=== PATIENT | female | born 1995 | race Caucasian/White ===

== ENCOUNTER 2019-01-17 12:33 | Emergency (ER) | payer BC ==
--- NOTE | 2019-01-17 13:00 | ER ---
Nurse's Notes [facility] Name: Shereen Johnson Age: 23 yrs Sex: Female : 1995 Arrival Date: 01/17/2019 Time: 12:37 Bed 27 Private MD: Diagnosis: Zoster [herpes zoster] Presentation: 01/17 12:52 Presenting complaint: Patient states: Rash to left arm pit, left breast and left side aj1 of back, reports that rash is painful, and itches a little. Transition of care: patient was not received from another setting of care. Onset of symptoms was 2018. Risk Assessment: Do you want to hurt yourself or someone else? Patient reports no desire to harm self or others. Initial Sepsis Screen: Does the patient meet any 2 criteria? No. Patient's initial sepsis screen is negative. Does the patient have a suspected source of infection? No. Patient's initial sepsis screen is negative. Care prior to arrival: None. 12:52 Method Of Arrival: Ambulatory aj1 12:52 Acuity: ANDREW 4 aj1 Triage Assessment: 12:53 General: Appears in no apparent distress. comfortable, Behavior is calm, cooperative, aj1 appropriate for age. Pain: Pain currently is 6 out of 10 on a pain scale. 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 - Social history:: Smoking status: Patient/guardian denies using tobacco. - Ebola Screening: : Patient denies travel to an Ebola-affected area in the 21 days before illness onset. Screenin:01 Abuse screen: Denies threats or abuse. Denies injuries from another. Nutritional aj1 screening: No deficits noted. Tuberculosis screening: No symptoms or risk factors identified. Fall Risk None identified. Assessment: 13:01 General: Appears in no apparent distress. Behavior is calm, cooperative, appropriate aj1 for age. Pain: Complains of pain in right scapular area, anterior aspect of left upper chest, left breast and left axilla Pain currently is 6 out of 10 on a pain scale. Quality of pain is described as burning. Neuro: Level of Consciousness is awake, alert, obeys commands, Oriented to person, place, time, situation. Cardiovascular: Patient's skin is warm and dry. Respiratory: Airway is patent Respiratory effort is even, unlabored, Respiratory pattern is regular, symmetrical. GI: No signs and/or symptoms were reported involving the gastrointestinal system. : No signs and/or symptoms were reported regarding the genitourinary system. EENT: No signs and/or symptoms were reported regarding the EENT system. Derm: Skin is pink, warm \T\ dry. normal, Rash noted that is red, raised, vesicular, on left scapular area and left axilla and left breast and anterior aspect of left upper chest. Musculoskeletal: No signs and/or symptoms reported regarding the musculoskeletal system. Circulation, motion, and sensation intact. Vital Signs: 12:53 BP 99 / 60; Pulse 89; Resp 16; Temp 99.0; Pulse Ox 98% ; Weight 58.97 kg (R); Height 5 aj1 ft. 2 in. (157.48 cm) (R); Pain 6/10; 12:53 Body Mass Index 23.78 (58.97 kg, 157.48 cm) aj1 ED Course: 12:37 Patient arrived in ED. mr 12:45 Lance Vaughn PA is PHCP. [facility] 12:45 Ricardo Solo MD is Attending Physician. [facility] 12:51 Darleen Lopez RN is Primary Nurse. aj1 12:52 Triage completed. aj1 12:53 Arm band placed on. aj1 13:14 No provider procedures requiring assistance completed. Patient did not have IV access aj1 during this emergency room visit. 13:15 Patient has correct armband on for positive identification. aj1 Administered Medications: No medications were administered Outcome: 12:59 Discharge ordered by . [facility] 13:14 Discharged to home ambulatory. aj1 13:14 Condition: good 13:14 Discharge instructions given to patient, Instructed on discharge instructions, follow up and referral plans. no drinking with medication, no driving heavy equipment, medication usage, Demonstrated understanding of instructions, follow-up care, medications, Prescriptions given X 2. 13:15 Patient left the ED. aj1 Signatures: Darleen Lopez RN RN aj1 Mickail, TYRELL Lucas Mary mr Corrections: (The following items were deleted from the chart) 13:07 13:01 Derm: No signs and/or symptoms reported regarding the dermatologic system. Skin aj1 is pink, warm \T\ dry. normal, aj1
--- NOTE | 2019-01-17 13:01 | EDPHYS ---
Physician Documentation [facility] Name: Shereen Johnson Age: 23 yrs Sex: Female : 1995 Arrival Date: 01/17/2019 Time: 12:37 Bed 27 Private MD: ED Physician Ricardo Solo HPI: 01/17 12:58 This 23 yrs old Female presents to ER via Ambulatory with complaints of Rash. jmm 12:58 The patient's rash thought to be caused by an unknown cause. Onset: The jmm symptoms/episode began/occurred gradually, 2 day(s) ago. Associated signs and symptoms: Pertinent positives: itching, Pain Pertinent negatives: fever, swelling of lips, swelling of throat, swelling of tongue, vomiting, wheezing. This is a 23 year old female with no chronic medical conditions that presents to the ED with complaints of painful rash to the left arm, left axilla, and left upper back. Patient denies fever. . 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 - Social history:: Smoking status: Patient/guardian denies using tobacco. - Ebola Screening: : Patient denies travel to an Ebola-affected area in the 21 days before illness onset. ROS: 12:58 Constitutional: Negative for fever, chills, and weight loss, Cardiovascular: Negative jmm for chest pain, palpitations, and edema, Respiratory: Negative for shortness of breath, cough, wheezing, and pleuritic chest pain. 12:58 Skin: Positive for erythema. 12:58 All other systems are negative. Exam: 12:58 Constitutional: This is a well developed, well nourished patient who is awake, alert, jmm and in no acute distress. Head/Face: atraumatic. Eyes: EOMI, no conjunctival erythema appreciated ENT: Moist Mucus Membranes Neck: Trachea midline, Supple 12:58 Cardiovascular: Regular rate and rhythm. No edema appreciated Respiratory: Normal respirations, no respiratory distress appreciated Abdomen/GI: Non distended, soft 12:58 Chest/axilla: vesicular lesions noted with erythema to the left axilla. 12:58 Back: vesicular lesions noted to the left upper back. 12:58 Skin: vesicular lesions on an erythematous base noted to the left axilla, left arm, and left upper back. 12:58 Neuro: Orientation: is normal, Mentation: is normal, Memory: is normal, Gait: is steady. 12:58 Psych: Behavior/mood is pleasant, cooperative. Vital Signs: 12:53 BP 99 / 60; Pulse 89; Resp 16; Temp 99.0; Pulse Ox 98% ; Weight 58.97 kg (R); Height 5 aj1 ft. 2 in. (157.48 cm) (R); Pain 6/10; 12:53 Body Mass Index 23.78 (58.97 kg, 157.48 cm) aj1 MDM: 12:58 Patient medically screened. [facility] 12:58 Data reviewed: vital signs, nurses notes. Counseling: I had a detailed discussion with [facility] the patient and/or guardian regarding: the historical points, exam findings, and any diagnostic results supporting the discharge/admit diagnosis, the need for outpatient follow up, to return to the emergency department if symptoms worsen or persist or if there are any questions or concerns that arise at home. 12:58 ED course: Patient is alert and non toxic in appearance in the ED. PE findings appear [facility] consistent with herpes zoster. Patient is otherwise given strict return precautions. Patient understood and agrees with the plan of care. . Administered Medications: No medications were administered Disposition: 17:10 Co-signature as Attending Physician, Ricardo Solo MD. rn Disposition: 01/17/19 12:59 Discharged to Home. Impression: Zoster [herpes zoster]. - Condition is Stable. - Discharge Instructions: Shingles. - Prescriptions for Tylenol- Codeine #3 300-30 mg Oral Tablet - take 1 tablet by ORAL route every 6 hours As needed; 12 tablet. Valtrex 1 g Oral Tablet - take 1 tablet by ORAL route every 8 hours for 7 days; 21 tablet. - Medication Reconciliation Form, Thank You Letter, Antibiotic Education, Prescription Opioid Use form. - Follow up: Private Physician; When: 2 - 3 days; Reason: Recheck today's complaints, Continuance of care, Re-evaluation by your physician. Signatures: Darleen Lopez RN RN aj1 Lance Vaughn PA PA jmm Nieto, Roman, MD MD pig furnace operator: (The following items were deleted from the chart) 13:15 12:59 01/17/2019 12:59 Discharged to Home. Impression: Zoster [herpes zoster]. aj1 Condition is Stable. Forms are Medication Reconciliation Form, Thank You Letter, Antibiotic Education, Prescription Opioid Use. Follow up: Private Physician; When: 2 - 3 days; Reason: Recheck today's complaints, Continuance of care, Re-evaluation by your physician. kamla
[2019-01-17 17:08] VITALS: BP 99/60; TEMP 99; O2SAT 98
== END 2019-01-17 13:15 | disposition home or self-care (01) ==
LOC: ER 12:33
DX: B02.9 Zoster without complications (principal); Z88.1 Allergy status to other antibiotic agents
CPT/HCPCS: 99282

== ENCOUNTER 2019-05-09 12:51 | Emergency (ER) | payer BC ==
[2019-05-09] MEDS ORDERED: ACETAMINOPHEN 500 MG TAB ONE (13:36)
[2019-05-09] MEDS ORDERED: NA CHLORIDE 0.9% 1,000 ML ONE (14:38)
[2019-05-09 15:12] LABS: Absolute Lymphocytes (CBC) 0.8 K/uL (0.7-4.9); Basophils % 0.1 % (0-1.3); Hematocrit 38.5 % (36.0-45.0); Lymphocytes % 7.5 % (15.3-44.8); MPV 8.9 fL (7.6-11.3); RBC Red Blood Cell Count 4.38 M/uL (3.86-4.86)
[2019-05-09 15:13] LABS: ALT/SGPT 30 U/L (12-78); AST/SGOT 16 U/L (15-37); Alkaline Phosphatase 45 U/L (45-117); BUN Blood Urea Nitrogen 13 mg/dL (7-18); Bicarbonate 25 mmol/L (21-32); Bilirubin Direct 0.2 mg/dL (0-0.2); Bilirubin Total 0.8 mg/dL (0.2-1.0); Glucose Level 97 mg/dL (74-106); Lipase 65 U/L (73-393); Potassium 3.4 mmol/L (3.5-5.1); Protein, Total 7.3 g/dL (6.4-8.2); Sodium Level 136 mmol/L (136-145)
--- NOTE | 2019-05-09 16:21 | RAD REPORT ---
EXAM DESCRIPTION: CT - Abdomen Pelvis W Contrast - 05/09/2019 4:00 pm CLINICAL HISTORY: Abdominal pain COMPARISON: none. TECHNIQUE: Computed axial tomography of the abdomen pelvis was obtained. 100 cc Isovue-300 was admin istered intravenously. Oral contrast was not requested which limits evaluation of bowel. All CT scans are performed using dose optimization technique as appropriate and may include automated exposure control or mA/KV adjustment according to patient size. FINDINGS: The liver, pancreas, adrenal and kidneys appear unremarkable. The spleen is borderline enlarged There is no evidence of diverticulitis. The wall of portions of the colon are mildly thickened. 2.3 centimeter irregularly-shaped right ovarian cyst with a small amount of free fluid IUD within the uterus IMPRESSION: Mild thickening of the wall portions of the colon consistent with a mild colitis A 2.3 centimeter irregularly-shaped right ovarian cyst has recently ruptured. Small amount of free fl uid.
--- NOTE | 2019-05-09 16:41 | ER ---
Nurse's Notes [facility] Name: Shereen Johnson Age: 23 yrs Sex: Female : 1995 Arrival Date: 05/09/2019 Time: 12:54 Bed 7 Private MD: Diagnosis: Colitis Presentation: 05/09 13:09 Presenting complaint: Headache, abdominal cramping, and diarrhea x 2 days. Transition hb of care: patient was not received from another setting of care. Onset of symptoms was May 08, 2019. Risk Assessment: Do you want to hurt yourself or someone else? Patient reports no desire to harm self or others. Care prior to arrival: None. 13:09 Method Of Arrival: Ambulatory hb 13:09 Acuity: ANDREW 3 hb 13:45 Initial Sepsis Screen: Does the patient meet any 2 criteria? No. Patient's initial jl7 sepsis screen is negative. Does the patient have a suspected source of infection? No. Patient's initial sepsis screen is negative. Triage Assessment: 13:45 General: Appears in no apparent distress. 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 - Social history:: Smoking status: Patient/guardian denies using tobacco. - Ebola Screening: : No symptoms or risks identified at this time. Screenin:44 Abuse screen: Denies threats or abuse. Denies injuries from another. Nutritional jl7 screening: No deficits noted. Tuberculosis screening: No symptoms or risk factors identified. Fall Risk None identified. Assessment: 13:44 General: Appears in no apparent distress. uncomfortable, Behavior is calm, cooperative, jl7 appropriate for age. Pain: Denies pain. Neuro: Level of Consciousness is awake, alert, obeys commands, Oriented to person, place, time, situation. Cardiovascular: Patient's skin is warm and dry. Respiratory: Airway is patent Respiratory effort is even, unlabored, Respiratory pattern is regular, symmetrical. GI: Reports diarrhea. Derm: Skin is pink, warm \T\ dry. 14:46 Reassessment: Patient appears in no apparent distress at this time. No changes from jl7 previously documented assessment. Patient and/or family updated on plan of care and expected duration. Pain level reassessed. Patient is alert, oriented x 3, equal unlabored respirations, skin warm/dry/pink. 16:00 Reassessment: Patient appears in no apparent distress at this time. No changes from jl7 previously documented assessment. Patient and/or family updated on plan of care and expected duration. Pain level reassessed. Patient is alert, oriented x 3, equal unlabored respirations, skin warm/dry/pink. Vital Signs: 13:10 BP 122 / 58; Pulse 107; Resp 16; Temp 102; Pulse Ox 100% on R/A; Weight 58.97 kg; hb Height 5 ft. 2 in. (157.48 cm); Pain 6/10; 14:32 Temp 99.4(O); jl7 14:46 BP 101 / 55; Pulse 78; Resp 16 S; Temp 99.3(O); Pulse Ox 100% on R/A; jl7 15:56 BP 91 / 47; Pulse 83; Resp 14 S; Pulse Ox 100% on R/A; jl7 16:50 BP 110 / 57; Pulse 75; Resp 16; Pulse Ox 100% on R/A; jl7 13:10 Body Mass Index 23.78 (58.97 kg, 157.48 cm) hb ED Course: 12:54 Patient arrived in ED. rg4 13:10 Triage completed. hb 13:10 Arm band placed on. hb 13:14 Roberto Cifuentes PA is PHCP. 8 13:14 Maxime Gallegos MD is Attending Physician. jr8 13:17 Genaro Tom RN is Primary Nurse. jl7 13:44 Patient has correct armband on for positive identification. Bed in low position. Call [facility] light in reach. Side rails up X 1. Pulse ox on. NIBP on. 13:44 Flu and/or RSV swab sent to lab. jl7 14:46 Initial lab(s) drawn, by or, sent to lab. Inserted saline lock: 22 gauge in right [facility] antecubital area, using aseptic technique. Blood collected. 16:01 CT Abd/Pelvis - IV Contrast Only In Process Unspecified. EDMS 16:40 Ca, Temo, MD is Referral Physician. jr8 16:50 No provider procedures requiring assistance completed. IV discontinued, intact, jl7 bleeding controlled, No redness/swelling at site. Pressure dressing applied. Administered Medications: 13:43 Drug: Tylenol 1000 mg Route: PO; jl7 14:32 Follow up: Temp 99.4 Oral; Response: No adverse reaction; Temperature is decreased jl7 14:45 Drug: NS 0.9% 1000 ml Route: IV; Rate: 1000 ml; Site: right antecubital; jl7 15:45 Follow up: IV Status: Completed infusion; IV Intake: 1000ml jl7 15:45 Follow up: Response: No adverse reaction; IV Status: Completed infusion; IV Intake: jl7 1000ml 16:49 Drug: Cipro 500 mg Route: PO; jl7 16:49 Follow up: Response: Medication administered at discharge. jl7 16:49 Drug: Flagyl 500 mg Route: PO; jl7 16:49 Follow up: Response: Medication administered at discharge. jl7 Intake: 15:45 IV: 1000ml; Total: 1000ml. jl7 15:45 IV: 1000ml; Total: 2000ml. jl7 Outcome: 16:40 Discharge ordered by . jr8 16:50 Discharged to home ambulatory. jl7 16:50 Condition: stable 16:50 Discharge instructions given to patient, Instructed on discharge instructions, follow up and referral plans. medication usage, Demonstrated understanding of instructions, follow-up care, medications, Prescriptions given X 3. 16:51 Patient left the ED. jl7 Signatures: Dispatcher [employer] EDTN Roberto Cifuentes PA PA jr8 Cee Gunn, RN RN Autumn Layton4 Genaro Tom RN RN jl7
--- NOTE | 2019-05-09 16:42 | EDPHYS ---
Physician Documentation [facility] Name: Shereen Johnson Age: 23 yrs Sex: Female : 1995 Arrival Date: 05/09/2019 Time: 12:54 Bed 7 Private MD: ED Physician Maxime Gallegos HPI: 05/09 13:49 This 23 yrs old Female presents to ER via Ambulatory with complaints of Flu jr8 Symptoms. 13:49 The patient reports fever, with an emergency department temperature of 102 degrees jr8 Fahrenheit. Onset: The symptoms/episode began/occurred acutely, yesterday. Modifying factors: there are no obvious modifying factors. Associated signs and symptoms: Pertinent positives: myalgias. Severity of symptoms: At their worst the symptoms were mild in the emergency department the symptoms are unchanged. The patient has not experienced similar symptoms in the past. The patient has not recently seen a physician. Patient stated that she started to have headaches, chills, body aches, and now diarrhea without n/v. Fevers today . 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 - Social history:: Smoking status: Patient/guardian denies using tobacco. - Ebola Screening: : No symptoms or risks identified at this time. ROS: 13:49 Eyes: Negative for injury, pain, redness, and discharge, ENT: Negative for injury, jr8 pain, and discharge, Neck: Negative for injury, pain, and swelling, Cardiovascular: Negative for chest pain, palpitations, and edema, Respiratory: Negative for shortness of breath, cough, wheezing, and pleuritic chest pain, Back: Negative for injury and pain, MS/Extremity: Negative for injury and deformity, Skin: Negative for injury, rash, and discoloration. 13:49 Constitutional: Positive for body aches, chills, fever. 13:49 Abdomen/GI: Positive for diarrhea, abdominal cramps, Negative for abdominal pain, nausea, vomiting. 13:49 Neuro: Positive for headache. Exam: 13:49 Eyes: Pupils equal round and reactive to light, extra-ocular motions intact. Lids and jr8 lashes normal. Conjunctiva and sclera are non-icteric and not injected. Cornea within normal limits. Periorbital areas with no swelling, redness, or edema. ENT: Nares patent. No nasal discharge, no septal abnormalities noted. Tympanic membranes are normal and external auditory canals are clear. Oropharynx with no redness, swelling, or masses, exudates, or evidence of obstruction, uvula midline. Mucous membranes moist. Neck: Trachea midline, no thyromegaly or masses palpated, and no cervical lymphadenopathy. Supple, full range of motion without nuchal rigidity, or vertebral point tenderness. No Meningismus. Cardiovascular: Regular rate and rhythm with a normal S1 and S2. No gallops, murmurs, or rubs. Normal PMI, no JVD. No pulse deficits. Respiratory: Lungs have equal breath sounds bilaterally, clear to auscultation and percussion. No rales, rhonchi or wheezes noted. No increased work of breathing, no retractions or nasal flaring. Abdomen/GI: Soft, non-tender, with normal bowel sounds. No distension or tympany. No guarding or rebound. No evidence of tenderness throughout. Back: No spinal tenderness. No costovertebral tenderness. Full range of motion. Skin: Warm, dry with normal turgor. Normal color with no rashes, no lesions, and no evidence of cellulitis. MS/ Extremity: Pulses equal, no cyanosis. Neurovascular intact. Full, normal range of motion. Neuro: Awake and alert, GCS 15, oriented to person, place, time, and situation. Cranial nerves II-XII grossly intact. Motor strength 5/5 in all extremities. Sensory grossly intact. Cerebellar exam normal. Normal gait. Vital Signs: 13:10 BP 122 / 58; Pulse 107; Resp 16; Temp 102; Pulse Ox 100% on R/A; Weight 58.97 kg; hb Height 5 ft. 2 in. (157.48 cm); Pain 6/10; 14:32 Temp 99.4(O); jl7 14:46 BP 101 / 55; Pulse 78; Resp 16 S; Temp 99.3(O); Pulse Ox 100% on R/A; jl7 15:56 BP 91 / 47; Pulse 83; Resp 14 S; Pulse Ox 100% on R/A; jl7 16:50 BP 110 / 57; Pulse 75; Resp 16; Pulse Ox 100% on R/A; jl7 13:10 Body Mass Index 23.78 (58.97 kg, 157.48 cm) hb MDM: 13:18 Patient medically screened. jr8 16:39 Data reviewed: vital signs, nurses notes, lab test result(s), radiologic studies, CT jr8 scan. Data interpreted: Pulse oximetry: on room air is 100 %. Interpretation: normal. Counseling: I had a detailed discussion with the patient and/or guardian regarding: the historical points, exam findings, and any diagnostic results supporting the discharge/admit diagnosis, lab results, radiology results, the need for outpatient follow up, a needlemaker, to return to the emergency department if symptoms worsen or persist or if there are any questions or concerns that arise at home. Response to treatment: the patient's symptoms have mildly improved after treatment. 16:39 Special discussion: Based on the patient's Hx, exam, and Dx evaluation, there is no jr indication for emergent surgery or inpatient Tx. It is understood by the patient/guardian that if the Sx's persist or worsen they need to return immediately for re-evaluation. 05/09 13:25 Order name: Influenza Screen (a \T\ B); Complete Time: 14:30 05/09 14:33 Order name: Basic Metabolic Panel; Complete Time: 15:25 8 05/09 14:33 Order name: CBC with Diff 05/09 14:33 Order name: Creatinine for Radiology; Complete Time: 15:25 05/09 14:33 Order name: Hepatic Function; Complete Time: 15:25 05/09 14:33 Order name: Lipase; Complete Time: 15:25 05/09 14:33 Order name: IV Saline Lock; Complete Time: 14:46 05/09 14:33 Order name: Labs collected and sent; Complete Time: 14:46 05/09 14:33 Order name: Test, Serum; Complete Time: 15:47 05/09 15:26 Order name: CT Abd/Pelvis - IV Contrast Only; Complete Time: 16:37 jr Administered Medications: 13:43 Drug: Tylenol 1000 mg Route: PO; jl7 14:32 Follow up: Temp 99.4 Oral; Response: No adverse reaction; Temperature is decreased 7 14:45 Drug: NS 0.9% 1000 ml Route: IV; Rate: 1000 ml; Site: right antecubital; jl7 15:45 Follow up: IV Status: Completed infusion; IV Intake: 1000ml jl7 15:45 Follow up: Response: No adverse reaction; IV Status: Completed infusion; IV Intake: jl7 1000ml 16:49 Drug: Cipro 500 mg Route: PO; jl7 16:49 Follow up: Response: Medication administered at discharge. jl7 16:49 Drug: Flagyl 500 mg Route: PO; jl7 16:49 Follow up: Response: Medication administered at discharge. jl7 Disposition: 05/09/19 16:40 Discharged to Home. Impression: Colitis. - Condition is Stable. - Discharge Instructions: Colitis. - Prescriptions for Bentyl 20 mg Oral Tablet - take 1 tablet by ORAL route every 6 hours As needed; 20 tablet. Cipro 500 mg Oral Tablet - take 1 tablet by ORAL route every 12 hours for 10 days; 20 tablet. Flagyl 500 mg Oral Tablet - take 1 tablet by ORAL route every 6 hours for 10 days; 40 tablet. - Medication Reconciliation Form, Thank You Letter, Antibiotic Education, Prescription Opioid Use form. - Follow up: Temo Penaloza MD; When: 10 - 14 days; Reason: Recheck today's complaints, Continuance of care, Re-evaluation by your physician. - Problem is new. - Symptoms have improved. Signatures: Dispatcher [employer] EDOK Roberto Cifuentes PA PA jr8 Cee Gunn, RN RN Genaro Tom RN RN jl7 Corrections: (The following items were deleted from the chart) 16:51 16:40 05/09/2019 16:40 Discharged to Home. Impression: Colitis. Condition is Stable. jl7 Forms are Medication Reconciliation Form, Thank You Letter, Antibiotic Education, Prescription Opioid Use. Follow up: Temo Penaloza; When: 10 - 14 days; Reason: Recheck today's complaints, Continuance of care, Re-evaluation by your physician. Problem is new. Symptoms have improved. jr8
[2019-05-09] MEDS ORDERED: metroNIDAZOLE 500 MG TABLET ONE (16:46)
[2019-05-09] MEDS ORDERED: CIPROFLOXACIN HCL 500 MG TAB ONE (16:47)
[2019-05-09 17:22] VITALS: O2SAT 100
[2019-05-09 17:24] VITALS: TEMP 99.3
[2019-05-09 17:27] VITALS: BP 110/57
[2019-05-09 20:34] LABS: Blood Morphology Comment NOT SEEN (NOT SEEN); Platelet Estimate ADEQ; Urine White Blood Cell Casts OK
== END 2019-05-09 16:51 | disposition home or self-care (01) ==
LOC: ER 12:51
DX: K52.9 Noninfective gastroenteritis and colitis, unspecified (principal); Z88.1 Allergy status to other antibiotic agents
CPT/HCPCS: 85025; 80048; 36415; 84703; 80076; 83690; 87804 ×2; 74177; 96360; 99284; Q9967; J7030

== ENCOUNTER 2021-01-01 09:19 | Emergency (ER) | payer BC ==
--- OUTSIDE RECORDS SUMMARY | 2021-01-01 09:21 | XMS REPORT | Continuity of Care Document ---
:1995 Author Organization [facility] t Address [address] [place] [address] Care Team Providers Name Role Phone Brandon BERNARDOP Attending Clinician Lab, Fam Pob I Attending Clinician Unavailable Doctor Unassigned, Name Attending Clinician Unavailable Problems This patient has no known problems. Allergies, Adverse Reactions, Alerts This patient has no known allergies or adverse reactions. Medications This patient has no known medications. Procedures This patient has no known procedures. Encounters Start End Encounter Admission Attending Care Care Encounter Source Date/Time Date/Time Type Type Clinicians Facility Department ID 2019-11-26 2019-11-26 Telephone MOHSEN Taylor [id number] 00:00:00 00:00:00 Fely ORTIZ [id number] [place] [id number] 2019-11-24 2019-11-24 Laboratory Lab, [facility] [id number] 08:22:47 08:42:47 Only Fam Pob I Health [id number] [place] [id number] [place] [id number] [address] 2019-11-24 2019-11-24 Letter Doctor CONNOLLY [id number] 00:00:00 00:00:00 (Out) UnassANGEL alfaro [id number] [place] [id number] [id number] Results This patient has no known results.
[2021-01-01 12:42] LABS: SARS-COV-2 RT PCR POSITIVE (NEGATIVE)
[2021-01-01] MEDS ORDERED: ACETAMINOPHEN 500 MG TAB ONE (13:00)
--- NOTE | 2021-01-01 13:00 | ER ---
Nurse's Notes [facility] Name: Shereen Johnson Age: 25 yrs Sex: Female : 1995 Arrival Date: 01/01/2021 Time: 09:21 Bed 12 Private MD: Diagnosis: SARS-associated coronavirus as the cause of diseases classified elsewhere;Headache Presentation: 01/01 09:51 Chief complaint: Patient states: MINAYA and body aches that began Thursday Morning. Tested ss negative for covid yesterday. Coronavirus screen: Client presents with at least one sign or symptom that may indicate coronavirus-19. Standard/surgical mask placed on the client. Provider contacted for isolation considerations. Ebola Screen: Patient denies exposure to infectious person. Patient denies travel to an Ebola-affected area in the 21 days before illness onset. Initial Sepsis Screen: Does the patient meet any 2 criteria? No. Patient's initial sepsis screen is negative. Does the patient have a suspected source of infection? No. Patient's initial sepsis screen is negative. Risk Assessment: Do you want to hurt yourself or someone else? Patient reports no desire to harm self or others. Onset of symptoms was December 30, 2020. 09:51 Method Of Arrival: Ambulatory ss 09:51 Acuity: ANDREW 4 ss Historical: - Allergies: 09:52 Zithromax; ss - Home Meds: 09:52 None [Active]; ss - PMHx: 09:52 None; ss - PSHx: 09:52 section; ss - Immunization history:: Client reports having NOT received the Covid vaccine. - Social history:: Smoking status: Patient denies any tobacco usage or history of. - Family history:: not pertinent. - Hospitalizations: : No recent hospitalization is reported. Screenin:07 Abuse screen: Denies threats or abuse. Nutritional screening: No deficits noted. vg1 Tuberculosis screening: No symptoms or risk factors identified. Fall Risk No fall in past 12 months (0 pts). No secondary diagnosis (0 pts). No IV (0 pts). Ambulatory Aid- None/Bed Rest/Nurse Assist (0 pts). Gait- Normal/Bed Rest/Wheelchair (0 pts) Mental Status- Oriented to own ability (0 pts). Total Simmons Fall Scale indicates No Risk (0-24 pts). Assessment: 11:59 General: Appears in no apparent distress. comfortable, Behavior is calm, cooperative. vg1 Pain: Complains of pain in head Pain currently is 7 out of 10 on a pain scale. Neuro: Level of Consciousness is awake, alert, obeys commands, Oriented to person, place, time, situation. Cardiovascular: Patient's skin is warm and dry. Respiratory: Airway is patent Respiratory effort is even, unlabored. GI: Patient currently denies diarrhea, nausea, vomiting. : No signs and/or symptoms were reported regarding the genitourinary system. EENT: No signs and/or symptoms were reported regarding the EENT system. Derm: Skin is intact, is healthy with good turgor. Musculoskeletal: Circulation, motion, and sensation intact. 12:34 Reassessment: Received VO from Dr Solo to administer Tylenol 1g PO x1. vg1 13:06 Reassessment: Patient appears in no apparent distress at this time. Patient and/or vg1 family updated on plan of care and expected duration. Pain level reassessed. Patient is alert, oriented x 3, equal unlabored respirations, skin warm/dry/pink. Vital Signs: 09:51 Weight 54.43 kg; Height 5 ft. 2 in. (157.48 cm); Pain 7/10; ss 09:52 BP 98 / 61; Pulse 91; Resp 16; Temp 98.6(O); Pulse Ox 99% on R/A; ss 12:07 BP 99 / 61; Pulse 94; Resp 16; Pulse Ox 97% ; vg1 13:06 BP 106 / 87; Pulse 90; Resp 16; Pulse Ox 98% on R/A; vg1 09:51 Body Mass Index 21.95 (54.43 kg, 157.48 cm) [place] Coma Score: 12:58 Eye Response: spontaneous(4). Verbal Response: oriented(5). Motor Response: obeys rn commands(6). Total: 15. ED Course: 09:21 Patient arrived in ED. mr 09:30 Ricardo Solo MD is Attending Physician. rn 09:51 Triage completed. ss 09:52 Arm band placed on right wrist. ss 11:31 Ricardo Solo MD is Attending Physician. rn 11:33 Ara Posada RN is Primary Nurse. vg1 12:07 Patient has correct armband on for positive identification. Bed in low position. Call vg1 light in reach. 13:07 No provider procedures requiring assistance completed. Patient did not have IV access vg1 during this emergency room visit. Administered Medications: 12:38 Drug: Tylenol 1000 mg Route: PO; vg1 13:06 Follow up: Response: No adverse reaction; Marked relief of symptoms vg1 Outcome: 12:59 Discharge ordered by . rn 13:07 Discharged to home ambulatory. vg1 13:07 Condition: stable 13:07 Discharge instructions given to patient, Instructed on discharge instructions, follow up and referral plans. Demonstrated understanding of instructions, follow-up care. 13:07 Patient left the ED. vg1 Signatures: Denise House Roman, MD MD rn Mikey, CLAUDETTE Plummer RN, Victoria, RN RN vg1
--- NOTE | 2021-01-01 13:00 | EDPHYS ---
Physician Documentation [facility] Name: Shereen Johnson Age: 25 yrs Sex: Female : 1995 Arrival Date: 01/01/2021 Time: 09:21 Bed 12 Private MD: ED Physician Ricardo Solo HPI: 01/01 09:56 This 25 yrs old Female presents to ER via Ambulatory with complaints of rn Headache, Body aches. 09:56 The patient complains of pain to the forehead. The patient describes the headache as rn aching. Onset: The symptoms/episode began/occurred 3 day(s) ago. Associated signs and symptoms: Pertinent positives: fever, malaise, Muscle aches, congestion, sore throat. Severity of symptoms: At its worst the pain was mild, in the emergency department the pain is unchanged. Headache History: Denies prior headaches. The symptoms are alleviated by nothing. the symptoms are aggravated by nothing. The patient has not experienced similar symptoms in the past. The patient has not recently seen a physician. Patient reports 2 or 3 days of not feeling well, woke up with headache/body aches/congestion/sore throat, states had rapid Covid test and was negative. Still does not feel well. Denies cough or shortness of breath. No loss of taste or smell. No abdominal pain.. Historical: - Allergies: 09:52 Zithromax; ss - Home Meds: 09:52 None [Active]; ss - PMHx: 09:52 None; ss - PSHx: 09:52 section; ss - Immunization history:: Client reports having NOT received the Covid vaccine. - Social history:: Smoking status: Patient denies any tobacco usage or history of. - Family history:: not pertinent. - Hospitalizations: : No recent hospitalization is reported. ROS: 09:56 Constitutional: Positive for fever and chills Eyes: Negative for injury, pain, redness, rn and discharge, ENT: Positive for congestion and sore throat Neck: Negative for injury, pain, and swelling, Cardiovascular: Negative for chest pain, palpitations, and edema, Respiratory: Negative for shortness of breath, cough, wheezing, and pleuritic chest pain, Abdomen/GI: Negative for abdominal pain, nausea, vomiting, diarrhea, and constipation, Back: Negative for injury and pain, : Negative for injury, bleeding, discharge, and swelling, MS/Extremity: Negative for injury and deformity, Skin: Negative for injury, rash, and discoloration, Neuro: Positive for headache 09:56 All other systems are negative. Exam: 09:56 Constitutional: This is a well developed, well nourished patient who is awake, alert, rn and in no acute distress. Head/Face: Normocephalic, atraumatic. Eyes: Pupils equal round and reactive to light, extra-ocular motions intact. Lids and lashes normal. Conjunctiva and sclera are non-icteric and not injected. Cornea within normal limits. Periorbital areas with no swelling, redness, or edema. ENT: Mild pharyngeal erythema, no exudate, no stridor, uvula midline Neck: Trachea midline, no masses palpated, and no cervical lymphadenopathy. Supple, full range of motion without nuchal rigidity, or vertebral point tenderness. No Meningismus. Cardiovascular: Regular rate and rhythm with a normal S1 and S2. No gallops, murmurs, or rubs. Normal PMI, no JVD. No pulse deficits. Respiratory: Lungs have equal breath sounds bilaterally, clear to auscultation and percussion. No rales, rhonchi or wheezes noted. No increased work of breathing, no retractions or nasal flaring. Abdomen/GI: Soft, non-tender, with normal bowel sounds. No distension or tympany. No guarding or rebound. No evidence of tenderness throughout. Back: No spinal tenderness. No costovertebral tenderness. Full range of motion. Skin: Warm, dry with normal turgor. Normal color with no rashes, no lesions, and no evidence of cellulitis. MS/ Extremity: Pulses equal, no cyanosis. Neurovascular intact. Full, normal range of motion. Equal circumference. Neuro: Awake and alert, GCS 15, oriented to person, place, time, and situation. Cranial nerves II-XII grossly intact. Motor strength 5/5 in all extremities. Sensory grossly intact. Cerebellar exam normal. Vital Signs: 09:51 Weight 54.43 kg; Height 5 ft. 2 in. (157.48 cm); Pain 7/10; ss 09:52 BP 98 / 61; Pulse 91; Resp 16; Temp 98.6(O); Pulse Ox 99% on R/A; ss 12:07 BP 99 / 61; Pulse 94; Resp 16; Pulse Ox 97% ; vg1 13:06 BP 106 / 87; Pulse 90; Resp 16; Pulse Ox 98% on R/A; vg1 09:51 Body Mass Index 21.95 (54.43 kg, 157.48 cm) ss [place] Coma Score: 12:58 Eye Response: spontaneous(4). Verbal Response: oriented(5). Motor Response: obeys rn commands(6). Total: 15. MDM: 11:31 Patient medically screened. rn 12:58 Differential diagnosis: migraine, tension headache, vasomotor headache, Strep, flu, rn Covid. Data reviewed: vital signs, nurses notes, lab test result(s), and as a result, I will discharge patient. Data interpreted: court recording monitor: rate is 94 beats/min, rhythm is normal sinus rhythm, regular, with no ectopy, Interpretation: normal rate, normal rhythm, Pulse oximetry: on room air is 97 %. Interpretation: normal. Counseling: I had a detailed discussion with the patient and/or guardian regarding: the historical points, exam findings, and any diagnostic results supporting the discharge/admit diagnosis, lab results, the need for outpatient follow up, to return to the emergency department if symptoms worsen or persist or if there are any questions or concerns that arise at home. Special discussion: I discussed with the patient/guardian in detail that at this point there is no indication for admission to the hospital. It is understood, however, that if the symptoms persist or worsen the patient needs to return immediately for re-evaluation. ED course: Patient positive for Covid, no respiratory symptoms, stable vital signs, will DC home with return precautions.. 01/01 09:51 Order name: Strep; Complete Time: 12:47 rn 01/01 11:48 Order name: Throat Culture EDMS 01/01 12:43 Order name: COVID-19/FLU A+B; Complete Time: 12:47 EDMS Administered Medications: 12:38 Drug: Tylenol 1000 mg Route: PO; vg1 13:06 Follow up: Response: No adverse reaction; Marked relief of symptoms vg1 Disposition Summary: 01/01/21 12:59 Discharge Ordered Location: Home rn Problem: new rn Symptoms: have improved rn Condition: Stable rn Diagnosis - SARS-associated coronavirus as the cause of diseases classified elsewhere rn - Headache rn Followup: rn - With: Private Physician - When: As needed - Reason: Recheck today's complaints, Re-evaluation by your physician Discharge Instructions: - Discharge Summary Sheet rn - COVID-19 rn - 10 Things You Can Do to Manage Your COVID-19 Symptoms at Home - [facility] rn - Viral Illness, Adult rn - Prevent the Spread of COVID-19 if You Are Sick - 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 EDMS EDMS 11: 09:52 Influenza Screen (A ordered. EDMS EDMS
[2021-01-01 13:12] VITALS: TEMP 98.6
[2021-01-01 13:15] VITALS: BP 106/87; O2SAT 98
== END 2021-01-01 13:07 | disposition home or self-care (01) ==
LOC: ER 09:19
DX: U07.1 COVID-19 (principal); Z88.1 Allergy status to other antibiotic agents
CPT/HCPCS: 87070; 87081; 0240U; 99283

== ENCOUNTER 2025-01-05 08:37 | Emergency (ER) | payer BC, SELFPAY ==
--- OUTSIDE RECORDS SUMMARY | 2025-01-05 08:40 | XMS REPORT | Continuity of Care Document ---
Author Name Unknown Address [address] [facility] [place] [address] [facility] Address [address] [facility] [address] [place] [address] Care Team Providers Care Promotions Team Leader Name Role Phone PCP, PATIENT DOES NOT HAVE A Primary Care Physic junior Unavailable CAREN EMANUEL Attending Clinician Unavailable L_Pena Attending Clinician Unavailable Caren Emanuel MD Attending Clinician [phone] Doctor Unassigned, [place] Attending Clinician U navailable 2, [facility] Attending Clinician Unavailable Bridgette Javier Attending Clinician [phone] Lab, [facility] Fam Pob I Attending Clinician Unavailab BRIDGETTE Blakely Attending Clinician Unavailable L_Eliazar Admitting Clinician Unavailable Payers Payer Name Policy Type Policy Number Effective Date Expirati on Date Source [facility] [id number] 2018 00:00:00 [facility] [id number] 2016 00:00:00 Problems Condition Name Condition Details Condition Category Status Onset Date Resolution Date Last Treatment Date Treating Clinician Comments Source No known active problems No known active problems Disease [facility] Allergies, Adverse Reactions, Alerts Allergy Name Allergy Type Status Severity Reaction(s) Onset Date Inactive Date Treating Clinician Comments Source AZITHROM YCIN DRUG INGREDI Active Rash 09-14 00:00: 00 [facility] Azithrom ycin Propensi ty to adverse reaction s Active Rash 09-14 00:00: 00 [facility] Azithrom ycin Allergy to substanc e Active Moderate severity Hives [facility] Social History Social Habit Start Date Stop Date Quantity Comments Source Exposure to SARS-CoV-2 (event) 2021-10-26 00:00:00 2021-11-05 14:55:00 Not sure [facility] Tobacco use and exposure 2016-05-23 00:00:00 2016-05-23 00:00:00 Never used [facility] Sex Assigned At 1995 00:00:00 1995 00:00:00 [facility] Smoking Status Start Date Stop Date Source Never Smoker [facility] Medications Ordered Medication Name Filled Medication Name Start Date Stop Date Current Medication? Ordering Clinician Indication Dosage Frequency Signature (SIG) Comments Components Source metroNIDAZO LE 500 mg tablet 09-24 00:00: 00 11-05 00:00 :00 No [id number] 500mg Take 1 tablet by mouth every 12 (twelve) hours. [facility] ondansetron 4 mg dis[address] ing tablet Place 1 tablet every 8 hours by translingua l route as needed, for Nausea/Vomi ting. ondansetron 4 [address] ing tablet Place 1 tablet every 8 hours by translingua l route as needed, for Nausea/Vomi ting. No 1 Q8H ondansetro n 4 mg disintegra ting tablet Place 1 tablet every 8 hours by translingu al route as needed, for Nausea/Vom iting. [facility] Vital Signs Vital Name Observation Time Observation Value Comments S ource Height 2023-10-26 00:00:00 62 [in_i] [facility] BP Diastolic 2023-10-26 00:00:00 69 mm[Hg] [facility] BP Systolic 2023-10-26 00:00:00 104 mm[Hg] [facility] Body Weight 2023-10-26 00:00:00 2361.6 [oz_av] [facility] BMI (Body Mass Index) 2023-03-17 00:00:00 24.9 kg/m2 [facility] Height 2023-03-17 00:00:00 62 [in_i] [facility] Body Weight 2023-03-17 00:00:00 2182.4 [oz_av] [facility] BP Systolic 2023-03-17 00:00:00 103 mm[Hg] [facility] BP Diastolic 2023-03-17 00:00:00 64 mm[Hg] [facility] BP Diastolic 2022-08-07 00:00:00 56 mm[Hg] [facility] Height 2022-08-07 00:00:00 62 [in_i] [facility] BMI (Body Mass Index) 2022-08-07 00:00:00 24.2 kg/m2 [facility] BP Systolic 2022-08-07 00:00:00 102 mm[Hg] [facility] Body Weight 2022-08-07 00:00:00 2115.2 [oz_av] [facility] Systolic blood pressure 2021-11-05 20:07:00 95 mm[Hg] [facility] Diastolic blood pressure 2021-11-05 20:07:00 59 mm[Hg] [facility] Heart rate 2021-11-05 20:07:00 84 /min [facility] Body temperature 2021-11-05 20:07:00 37 Michelle [facility] Respiratory rate 2021-11-05 20:07:00 18 /min [facility] Body height 2021-11-05 20:07:00 157.5 cm [facility] Body weight 2021-11-05 20:07:00 58.514 kg [facility] BMI 2021-11-05 20:07:00 23.59 kg/m2 [facility] Procedures Procedure Date / Time Performed Performing Clinicia n Source Delivery [facility] Encounters Start Date/Time End Date/Time Encounter Type Admission Type Attending Clinicians Care Facility Care Department Encounter ID Source 2023-10-26 00:00:00 2023-10-26 00:00:00 Nannette Perea APRN, MSN, ENVIRONMENTAL COMMUNICATIONS SPECIALIST-BC: [address] [place] [address], [address] [place] [id number] , Ph. [facility] [id number] 2023-08-18 15:00:00 2023-08-18 15:00:00 Outpatient R CAREN EMANUEL [facility] [id number] [facility] 2023-06-05 15:00:00 2023-06-05 15:00:00 Outpatient R CAREN EMANUEL [facility] [id number] [facility] 2023-03-17 00:00:00 2023-03-17 00:00:00 Nannette Perea APRN, MSN, [facility]: [address] [place] [address], [address] [address] , Ph. [facility] [id number] [facility] 2022-08-07 00:00:00 2022-08-07 00:00:00 Nannette Perea APRN, MSN, [facility]: [address] [place] [address], [address] [address] , Ph. [facility] [id number] [facility] 2021-11-05 15:00:00 2021-11-05 15:29:05 Outpatient R CAREN EMANUEL [facility] [id number] [facility] 2021-11-05 15:00:00 2021-11-05 15:29:05 Office Visit Caren Emanuel [facility] [id number] 350.1.13.10 4.2.7.2.686 [id number] 134 [id number] [facility] 2021-11-05 15:00:00 2021-11-05 15:29:05 Outpatient R CAREN EMANUEL [facility] [id number] [facility] 2021-09-24 00:00:00 2021-09-24 00:00:00 Case Management AdCaren blackmon [facility] 1.2.840.114 350.1.13.10 4.2.7.2.686 [id number] 134 [id number] [facility] 2021-09-20 09:30:00 2021-09-20 10:53:27 Office Visit Adgriselda, Caren Spring [facility] [id number] 350.1.13.10 4.2.7.2.686 [id number] [facility] 2021-09-20 09:30:00 2021-09-20 10:53:27 Outpatient R ADGRISELDA [facility] [id number] [facility] 2021-09-20 09:30:00 2021-09-20 10:53:27 Outpatient R ADUM, [facility] [id number] [facility] 2021-09-20 00:00:00 2021-09-20 00:00:00 Orders Only Doctor Unassigned, [place] [facility] [id number] 350.1.13.10 4.2.7.2.686 [id number] [facility] 2021-04-01 00:00:00 2021-04-01 00:00:00 Telephone Adum, Caren Spring [facility] 1.2.840.114 350.1.13.10 4.2.7.2.686 [id number] [facility] 2021-03-27 00:00:00 2021-03-27 00:00:00 Case Management AdCaren blackmon [facility] 1.2.840.114 350.1.13.10 4.2.7.2.686 [id number] 134 [id number] [facility] 2021-03-27 00:00:00 2021-03-27 00:00:00 Patient Secure Msg AdCaren blackmon [facility] 1.2.840.114 350.1.13.10 4.2.7.2.686 [id number] 134 [id number] [facility] 2021-03-26 00:00:00 2021-03-26 00:00:00 Telephone AdCaren blackmon [facility] 1.2.840.114 350.1.13.10 4.2.7.2.686 [id number] 134 [id number] [facility] 2021-03-25 00:00:00 2021-03-25 00:00:00 Telephone AdCaren blackmon [facility] 1.2.840.114 350.1.13.10 4.2.7.2.686 [id number] 134 [id number] [facility] 2021-03-22 11:33:30 2021-03-22 11:45:58 Cake Knocker Visit 2, [facility] Lab AdCaren blackmon [facility] 1.2.840.114 350.1.13.10 4.2.7.2.686 [id number] [facility] 2021-03-22 11:45:00 2021-03-22 11:45:00 Outpatient R JENAE CAREN [facility] [id number] [facility] 2021-03-22 10:02:13 2021-03-22 11:31:21 Office Visit Caren Emanuel [facility] 1.2.840.114 350.1.13.10 4.2.7.2.686 [id number] 134 [id number] [facility] 2021-03-22 10:00:00 2021-03-22 11:31:21 Outpatient R CAREN EMANUEL [facility] [id number] [facility] 2021-03-22 00:00:00 2021-03-22 00:00:00 Orders Only Doctor Unassigned, [place] [facility] 1.2.840.114 350.1.13.10 4.2.7.2.686 [id number] [facility] 2019-11-26 00:00:00 2019-11-26 00:00:00 Telephone Brandon [facility] 1.2.840.114 350.1.13.10 4.2.7.2.686 [id number] [facility] 2019-11-26 00:00:00 2019-11-26 00:00:00 [facility] 1.2.840.114 350.1.13.10 4.2.7.2.686 [id number] 2019-11-24 08:22:47 2019-11-24 08:42:47 Laboratory Only Lab, Counts include 234 beds at the [facility] [id number] 350.1.13.10 4.2.7.2.686 [id number] 2019-11-24 08:22:47 2019-11-24 08:42:47 Laboratory Only Lab, [facility] I Brandon [facility] 1.2840.114 350.1.13.10 4.2.7.2.686 [id number] [facility] 2019-11-24 08:20:00 2019-11-24 08:20:00 Outpatient R BRIDGETTE CHAO [facility] [id number] [facility] 2019-11-24 00:00:00 2019-11-24 00:00:00 Letter (Out) Doctor Unassigned, [place] [facility] [id number] 350.1.13.10 4.2.7.2.686 [id number] 2019-11-24 00:00:00 2019-11-24 00:00:00 Letter (Out) Doctor Unassigned, [place] [facility] [id number] 350.1.13.10 4.2.7.2.686 [id number] [facility] Results Test Description Test Time Test Comments Results Result Co mments Source [facility]2023-03-17 16:15:00* Test Item Value Reference Range Interpretation Comme nts FLU A (test code = FLU A) negative FLU B (test code = FLU B) negative [facility] group A, [id number] 16:15:00 * Test Item Value Reference Range Interpretation Comme nts Strep (test code = Strep) negative [facility] macro (dipstick) panel - Urine 2022-08-07 10:54:00* Test Item Value Reference Range Interpretation Comme nts Leukocytes (test code = Leukocytes) Trace Nitrite (test code = Nitrite) negative Urobilinogen (test code = Urobilinogen) .2 Protein (test code = Protein) Trace pH (test code = pH) 7.0 Blood (test code = Blood) Non-Hemolyzed: Trace Specific Eva (test code = Specific Eva) 1.010 Ketone (test code = Ketone) Negative Bilirubin (test code = Bilirubin) Negative Glucose (test code = Glucose) Negative Appearance (test code = Appearance) Cloudy Color (test code = Color) Yellow [facility]
[2025-01-05] MEDS ORDERED: KETOROLAC 30 MG/ML INJ ONE (09:02)
[2025-01-05] MEDS ORDERED: NA CHLORIDE 0.9% 1,000 ML ONE (09:03)
[2025-01-05] MEDS ORDERED: ACETAMINOPHEN 500 MG TAB ONE (09:03)
[2025-01-05 09:23] LABS: Influenza A Ag Negative; Influenza B Ag Negative
[2025-01-05 09:24] LABS: SARS-CoV-2 Antigen Rapid Res Positive (Negative)
--- NOTE | 2025-01-05 09:28 | EDPHYS ---
Physician Documentation [facility] Name: Shereen Johnson Age: 29 yrs Sex: Female : 1995 Arrival Date: 01/05/2025 Time: 08:37 Bed 5 Private MD: ED Physician Gil Santa HPI: 01/05 08:50 This 29 yrs old Female presents to ER via Ambulatory with complaints of Sore dr5 Throat, Fever, Chills, Headache. 08:50 The patient presents with sore throat. Onset: The symptoms/episode began/occurred 2 dr5 day(s) ago. Patient is a 29-year-old female with no past medical history coming in with sore throat, headache, chills, subjective fever at home for the past 2 days. Patient denies sick contacts. Patient reports that she took pain medication and antipyretics yesterday but nothing this morning. Patient denies chest pain, shortness of breath, nausea, vomiting, diarrhea. Patient does report productive cough with yellow sputum.. Historical: - Allergies: 08:51 Zithromax; dr5 - Home Meds: 08:54 None [Active]; ss - PMHx: 08:54 None; ss - PSHx: 08:51 section; dr5 - Infectious Disease History:: Denies. - Social history:: Smoking status: Reported history of juuling and/or vaping. ROS: 08:51 Constitutional: as per hpi Eyes: Negative for injury, pain, redness, and discharge, dr5 ENT: Moist mucous membranes. Cardiovascular: Negative for chest pain, palpitations, and edema, Respiratory: Negative for shortness of breath, cough, wheezing, and pleuritic chest pain, Abdomen/GI: Negative for abdominal pain, nausea, vomiting, diarrhea, and constipation, Back: Negative for injury and pain, MS/Extremity: Negative for injury and deformity, Skin: Negative for injury, rash, and discoloration, Neuro: Negative for headache, weakness, numbness, tingling, and seizure, Exam: 09:32 Constitutional: This is a well developed, well nourished patient who is awake, alert, dr5 and in no acute distress. Head/Face: Normocephalic, atraumatic. Eyes: Pupils equal round and reactive to light, extra-ocular motions intact. Lids and lashes normal. Conjunctiva and sclera are non-icteric and not injected. Cornea within normal limits. Periorbital areas with no swelling, redness, or edema. Neck: Trachea midline, no thyromegaly or masses palpated, and no cervical lymphadenopathy. Supple, full range of motion without nuchal rigidity, or vertebral point tenderness. No Meningismus. Chest/axilla: Normal chest wall appearance and motion. Nontender with no deformity. No lesions are appreciated. Cardiovascular: Regular rate and rhythm with a normal S1 and S2. Normal PMI, no JVD. No pulse deficits. Respiratory: Lungs have equal breath sounds bilaterally, clear to auscultation. No rales, rhonchi or wheezes noted. No increased work of breathing, no retractions or nasal flaring. Back: No spinal tenderness. No costovertebral tenderness. Full range of motion. Skin: Warm, dry with normal turgor. Normal color with no rashes, no lesions, and no evidence of cellulitis. MS/ Extremity: Pulses equal, no cyanosis. Neurovascular intact. Full, normal range of motion. Neuro: Awake and alert, GCS 15, oriented to person, place, time, and situation. Cranial nerves II-XII grossly intact. Motor strength 5/5 in all extremities. Sensory grossly intact. Cerebellar exam normal. Normal gait. Vital Signs: 08:48 BP 122 / 81; Pulse 106; Resp 17; Temp 99.1; Pulse Ox 98% on R/A; bc6 08:54 Weight 58.97 kg; Height 5 ft. 2 in. ; ss 10:12 BP 119 / 79; Pulse 98; Resp 19; Pulse Ox 98% on R/A; iw 08:54 Body Mass Index 23.78 (58.97 kg, 157.48 cm) ss MDM: 08:41 Medical Screening Exam initiated dr5 09:32 Differential diagnosis: viral syndrome COVID, Flu, Strep. Data reviewed: vital signs, dr5 nurses notes, lab test result(s), Flu: negative COVID-19: POSITIVE, Strep Negative. Consideration of Admission/Observation Escalation considered patient found to be COVID-positive requiring supplemental oxygen.. I considered the following discharge prescriptions or medication management in the emergency department I discussed and recommended Over The Counter medications, Medications were administered in the Emergency Department. See MAR. Care significantly affected by the following Social Determinants of Health: Poor access to healthcare and/or lack of insurance, Poor access to transportation, Problems related to employment. Counseling: I had a detailed discussion with the patient and/or guardian regarding the historical points, exam findings, and any diagnostic results supporting the discharge/admit diagnosis, the presence of at least one elevated blood pressure reading (>120/80) during this emergency department visit, lab results, the need for outpatient follow up, for definitive care, a family practitioner, to return to the emergency department if symptoms worsen or persist or if there are any questions or concerns that arise at home. Medication response: Tylenol, Toradol, normal saline. Response to treatment: the patient's symptoms have markedly improved after treatment. Special discussion: I discussed with the patient/guardian in detail that at this point there is no indication for admission to the hospital. It is understood, however, that if the symptoms persist or worsen the patient needs to return immediately for re-evaluation. Based on the history and exam findings, there is no indication for further emergent testing or inpatient evaluation. I discussed with the patient/guardian the need to see the primary care provider for further evaluation of the symptoms. ED course: Recommended patient alternate Tylenol Motrin as needed for pain fever. Recommend increase hydration. Will give patient medication to help with symptoms. All questions answered. Strict ER precautions given.. 10:06 Data reviewed: radiologic studies, plain films. Independent interpretation of the dr5 following test(s) in the Emergency Department X-Ray: My interpretation is Independent termination of x-ray does not reveal pneumonia.. 01/05 08:41 Order name: Group A Streptococcus Rapid; Complete Time: dr5 01/05 08:41 Order name: COVID-19 Ag + Flu A+B Ag; Complete Time: dr5 01/05 09:29 Order name: Throat Culture EDDC 01/05 08:49 Order name: Chest Single View XRAY; Complete Time: 10:05 dr5 Administered Medications: 09:13 Drug: NS 0.9% IV 1000 ml IV at 1000 ml once; to be given as a bolus over 60 minutes jl7 Route: IV; Rate: 1000 ml; Site: right antecubital; 10:13 Follow up: IV Status: Completed infusion iw 09:13 Drug: Ketorolac IVP 15 mg IVP once Route: IVP; Site: right antecubital; jl7 10:10 Follow up: Response: No adverse reaction; Pain is decreased iw 09:13 Drug: Acetaminophen PO 1000 mg PO once Route: PO; jl7 10:10 Follow up: Response: No adverse reaction iw Disposition Summary: 01/05/25 09:28 Discharge Ordered Notes: Location: Home dr5 Condition: Stable dr5 Diagnosis - SARS-associated coronavirus as the cause of diseases classified elsewhere dr5 Followup: dr5 - With: Emergency Department - When: As needed - Reason: Worsening of condition Followup: dr5 - With: Private Physician - When: 1 - 2 days - Reason: Recheck today's complaints, Continuance of care, Re-evaluation by your physician Discharge Instructions: - Discharge Summary Sheet dr5 - COVID-19 dr5 Forms: - Work release form dr5 - Medication Reconciliation Form dr5 - Patient Portal Instructions dr5 - Leadership Thank You Letter dr5 Prescriptions: - Paxlovid 300 mg (150 mg x 2)-100 mg Oral Tablet, Dose Pack - take 1 dose pack ORAL route as directed on dose pack take TWO 150 mg tablets of dr5 nirmatrelvir with ONE 100 mg tablet of ritonavir twice daily for 5 days; 1 application; Refills: 0, Product Selection Permitted - Zofran 4 mg Oral Tablet - take 1 tablet ORAL route every 12 hours As needed; 20 tablet; Refills: 0, dr5 Product Selection Permitted - Medrol ([place]) 4 mg Oral Tablets, Dose Pack - take 1 tablet ORAL route as directed - follow package instructions; 1 packet; dr5 Refills: 0, Product Selection Permitted Addendum: 01/06/2025 13:34 Co-signature as Attending Physician, Gil Santa MD I agree with the assessment and c martinez plan of care. Signatures: Dispatcher [employer] [facility] Gil Santa MD MD cha Blanchard, Shelby, RN RN ss Genaro Tom RN RN jl7 Raheem Burks, GARBAGE MAN-C GARBAGE MAN-5 Soha Izaguirre RN iw Corrections: (The following items were deleted from the chart) 01/05 08:50 08:50 Chest Single View+[id number] ordered. [facility]
--- NOTE | 2025-01-05 09:28 | ER ---
Nurse's Notes [facility] Name: Shereen Johnson Age: 29 yrs Sex: Female : 1995 Arrival Date: 01/05/2025 Time: 08:37 Bed 5 Private MD: Diagnosis: SARS-associated coronavirus as the cause of diseases classified elsewhere Presentation: 01/05 08:51 Acuity: ANDREW 4 ss 08:51 Chief complaint: Patient states: sore throat, fever, chills and MINAYA that began Thursday. ss Coronavirus screen: Client indicates they have traveled out of the [place] in the last 14 days. Ebola Screen: Patient denies exposure to infectious person. Patient denies travel to an Ebola-affected area in the 21 days before illness onset. Initial Sepsis Screen: Does the patient meet any 2 criteria? No. Patient's initial sepsis screen is negative. Does the patient have a suspected source of infection? No. Patient's initial sepsis screen is negative. Risk Assessment: Do you want to hurt yourself or someone else? Patient reports no desire to harm self or others. Onset of symptoms was January 03, 2025. 08:51 Method Of Arrival: Ambulatory ss Historical: - Allergies: 08:51 Zithromax; dr5 - Home Meds: 08:54 None [Active]; ss - PMHx: 08:54 None; ss - PSHx: 08:51 section; dr5 - Infectious Disease History:: Denies. - Social history:: Smoking status: Reported history of juuling and/or vaping. Screenin:12 [facility] ED Fall Risk Assessment (Adult) History of falling in the last 3 months, iw including since admission No falls in past 3 months (0 pts) Confusion or Disorientation No (0 pts) Intoxicated or Sedated No (0 pts) Impaired Gait No (0 pts) Mobility Assist Device Used No (0 pt) Altered Elimination No (0 pt) Score/Fall Risk Level 0 - 2 = Low Risk Oriented to surroundings, Maintained a safe environment. Abuse screen: Denies threats or abuse. Nutritional screening: No deficits noted. Tuberculosis screening: No symptoms or risk factors identified. Assessment: 10:12 Reassessment: Patient appears in no apparent distress at this time. Patient and/or iw family updated on plan of care and expected duration. Pain level reassessed. Patient is alert, oriented x 3, equal unlabored respirations, skin warm/dry/pink. Patient states feeling better. Patient states symptoms have improved. 10:13 Respiratory: Airway is patent Respiratory effort is even, unlabored, EENT: Throat is iw clear. Vital Signs: 08:48 BP 122 / 81; Pulse 106; Resp 17; Temp 99.1; Pulse Ox 98% on R/A; bc6 08:54 Weight 58.97 kg; Height 5 ft. 2 in. ; ss 10:12 BP 119 / 79; Pulse 98; Resp 19; Pulse Ox 98% on R/A; iw 08:54 Body Mass Index 23.78 (58.97 kg, 157.48 cm) ss ED Course: 08:41 Patient arrived in ED. cj3 08:41 Raheem Burks, S[employer] SEWER-C is PHCP. dr5 08:41 Gil Santa MD is Attending Physician. dr5 08:49 COVID-19 Ag + Flu A+B Ag Sent. dr5 08:49 Group A Streptococcus Rapid Sent. dr5 08:51 Triage completed. ss 08:53 Arm band placed on right wrist. ss 09:02 Genaro Tom, RN is Primary Nurse. jl7 09:13 Inserted saline lock: 22 gauge in right antecubital area, using aseptic technique. jl7 Flushed with 10 mL NS. 09:39 Chest Single View XRAY In Process Unspecified. EDMS 10:12 No provider procedures requiring assistance completed. IV discontinued, intact, iw bleeding controlled, No redness/swelling at site. Pressure dressing applied. 10:12 Patient has correct armband on for positive identification. Provided Education on: d/c iw instructions . Administered Medications: 09:13 Drug: NS 0.9% IV 1000 ml IV at 1000 ml once; to be given as a bolus over 60 minutes jl7 Route: IV; Rate: 1000 ml; Site: right antecubital; 10:13 Follow up: IV Status: Completed infusion iw 09:13 Drug: Ketorolac IVP 15 mg IVP once Route: IVP; Site: right antecubital; jl7 10:10 Follow up: Response: No adverse reaction; Pain is decreased iw 09:13 Drug: Acetaminophen PO 1000 mg PO once Route: PO; jl7 10:10 Follow up: Response: No adverse reaction iw Medication: 10:13 VIS not applicable for this client. iw Outcome: 09:28 Discharge ordered by . dr5 10:13 Discharged to home ambulatory, iw 10:13 Condition: good 10:13 Discharge instructions given to patient, Instructed on discharge instructions, follow up and referral plans. medication usage, Demonstrated understanding of instructions, follow-up care, medications, Prescriptions given X 3, 10:13 Patient left the ED. iw Signatures: Dispatcher [employer] EDSoha Cota RN RN iw Kavitha Alberts RN RN ss Genaro Tom RN RN jl7 Kina Davidson6 Raheem Burks, SAMPLE SE[employer]ER-C SAMPLE SEWER-Cdr5 Renetta Lopez cj3
--- NOTE | 2025-01-05 09:58 | RAD REPORT ---
EXAMINATION: ONE VIEW CHEST XR CLINICAL INDICATION: Female, 29 years old.,COUGH TECHNIQUE: Frontal chest projection is submitted. Examination is limited by patient positioning and t echnique. COMPARISON: 11/18/2011 FINDINGS: The lungs are well inflated and clear. No pneumothorax or sizable effusion. The heart is normal in s ize. Mediastinal contours are unremarkable. IMPRESSION: No acute intrathoracic abnormalities.
[2025-01-05 17:03] VITALS: TEMP 99.1; O2SAT 98
[2025-01-05 17:07] VITALS: BP 119/79
== END 2025-01-05 10:13 | disposition home or self-care (01) ==
LOC: ER 08:37
DX: U07.1 COVID-19 (principal)
CPT/HCPCS: 36415; 71045; 87070; 87428; 96361; 96374; 99284; J7030